=== PATIENT | female | born 1985 | race African-American/Black ===

== ENCOUNTER 2025-01-13 16:04 | Emergency (ER) | payer BC ==
[~2025-01-13] VITALS: Ht 162.6 cm; Wt 131.1 kg
[2025-01-13 17:40] VITALS: PULSE 84; RESP 18; TEMP 98.5; O2SAT 100
== END 2025-01-13 20:05 | disposition home or self-care (01) ==
LOC: ER 19:56
DX: M25.561 Pain in right knee (principal); M79.661 Pain in right lower leg; Z98.890 Other specified postprocedural states; I10 Essential (primary) hypertension
CPT/HCPCS: 93971; 99283